=== PATIENT | female | born 1990 | race Caucasian/White ===

== ENCOUNTER → 2018-04-09 | Outpatient (CLI) | payer OTHER ==
[~2018-04-09] MED LIST: ACET-76 PO; ALBU18HF INH; MAGN250T8 PO; METH1TAB41 PO; MONT10TA6 PO; MULT-732 PO; ST.300TA3 PO
[2018-04-09 09:00] LABS: CULTURE INDICATED? NO; MICROSCOPIC NOT IND
[2018-04-09 09:42] LABS: BASOPHILS # (AUTO) 0.05 x10^3/uL (0-0.1); BASOPHILS % (AUTO) 1 % (0-1); EOSINOPHILS # (AUTO) 0.33 x10^3/uL (0-0.4); EOSINOPHILS % (AUTO) 4 % (1-7); LYMPHOCYTES # (AUTO) 1.63 x10^3/uL (1-3.4); LYMPHOCYTES % (AUTO) 17 % (22-44); MD NO; MEAN CORPUSCULAR HEMOGLOBIN 31.2 pg (27.0-34.8); MEAN CORPUSCULAR HGB CONC 34.5 g/dL (32.4-35.8); MEAN CORPUSCULAR VOLUME 90.5 fL (80-100); MEAN PLATELET VOLUME 9.3 fL (7.4-10.4); MONOCYTES # (AUTO) 0.48 x10^3/uL (0.2-0.8); MONOCYTES % (AUTO) 5 % (2-9); NEUTROPHILS # (AUTO) 7.02 x10^3/uL (1.8-6.8); NEUTROPHILS % (AUTO) 74 % (42-75); PLATELET COUNT 272 x10^3/uL (130-400); RED BLOOD COUNT 5.01 x10^6/uL (3.82-5.3); RED CELL DISTRIBUTION WIDTH 13.3 % (9.6-15.2)
[2018-04-09 09:53] LABS: CALCIUM 8.7 mg/dL (8.5-10.1)
[2018-04-09 09:57] LABS: CREATININE 0.62 mg/dL (0.55-1.02)
[2018-04-09 09:58] LABS: ANION GAP 3 mmol/L (5-15); CHLORIDE 109 mmol/L (98-107)
== END | disposition home or self-care (01) ==
LOC: STAR 08:00
PROVIDERS: ATTEND Obstetrics & Gynecology Gynecology
DX: Z01.818 Encounter for other preprocedural examination (principal); R10.2 Pelvic and perineal pain; G89.29 Other chronic pain; N94.5 Secondary dysmenorrhea
CPT/HCPCS: 36415; 80048; 81003; 84703; 85025

== ENCOUNTER 2018-04-13 05:37 | Day surgery (SDC) | payer OTHER ==
[~2018-04-13] VITALS: Ht 170.2 cm; Wt 68.7 kg
[~2018-04-13 05:37] MED LIST changes: -ACET-76 PO
[2018-04-13] MEDS ORDERED: LACTATED RINGERS 1,000 ML IV SCH (06:47)
[2018-04-13] MEDS ORDERED: LIDOCAINE 1%-EPI 1:100K, 30ML ONE (06:59)
[2018-04-13] MEDS ORDERED: LIDOCAINE/PF 1%-EPI 1:200K, 30 ML ONE (06:59)
[2018-04-13] MEDS ORDERED: METHYLENE BLUE 10 MG/ML 10ML ONE (06:59)
[2018-04-13] MEDS ORDERED: FLUORESCEIN SODIUM 500 MG/5 ML ONE (06:59)
[2018-04-13 07:07] VITALS: BP 125/76
[2018-04-13] MEDS ORDERED: FENTANYL PF 250 MCG/5ML ONE (07:11)
[2018-04-13] MEDS ORDERED: MIDAZOLAM 1 MG/ML, 2ML ONE (07:11)
[2018-04-13] MEDS ORDERED: ACET-76 PO (07:14)
[2018-04-13] MEDS ORDERED: KETOROLAC 30 MG/1 ML ONE (07:28)
[2018-04-13] MEDS ORDERED: ONDANSETRON 2MG/ML, 2ML IV PRN (07:30)
[2018-04-13] MEDS ORDERED: MEPERIDINE/PF 25MG/0.5ML IVPush PRN (07:30)
[2018-04-13] MEDS ORDERED: hydrALAzine 20 MG/ML, 1ML IV PRN (07:30)
[2018-04-13] MEDS ORDERED: HYDROmorphone 2 MG/ML, 1ML IVPush PRN (07:30)
[2018-04-13] MEDS ORDERED: OXYcodone 5 MG/5 ML ORAL.SOL UDC PO PRN (07:30)
[2018-04-13] MEDS ORDERED: METHYLENE BLUE 10 MG/ML 10ML INJ ONE (07:30)
[2018-04-13] MEDS ORDERED: ALBUTEROL/IPRATROPIUM 2.5MG/0.5MG, 3 ML NPPB PRN (07:30)
[2018-04-13] MEDS ORDERED: LABETALOL 5MG/ML, 20ML IV PRN (07:30)
[2018-04-13] MEDS ORDERED: PROMETHAZINE 25 MG/ML, 1ML IV PRN (07:30)
[2018-04-13] MEDS ORDERED: LIDOCAINE 1%-EPI 1:100K, 30ML INFIL ONE (07:30)
[2018-04-13] MEDS ORDERED: CEFAZOLIN 1,000 MG ONE (07:36)
[2018-04-13] MEDS ORDERED: DEXAMETHASONE 4 MG/ML, 5ML ONE (07:39)
[2018-04-13] MEDS ORDERED: ONDANSETRON 2MG/ML, 2ML ONE (08:24)
[2018-04-13] MEDS ORDERED: PROPOFOL 10 MG/ML, 20ML ONE (08:24)
[2018-04-13] MEDS ORDERED: ROCURONIUM 10MG/ML,5ML ONE (08:24)
[2018-04-13] MEDS ORDERED: FENTANYL PF 100 MCG/2ML ONE (09:03)
[2018-04-13] MEDS ORDERED: OXYcodone 5 MG/5 ML ORAL.SOL UDC ONE (09:03)
[2018-04-13] MEDS: FENTANYL PF 100 MCG/2ML IV PRN ×3 (09:07→09:26)
[2018-04-13] MEDS ORDERED: HYDROmorphone 1 MG/ML, 1ML ONE (09:37)
== END 2018-04-13 12:35 | disposition home or self-care (01) ==
LOC: OUT 05:37
PROVIDERS: ATTEND Obstetrics & Gynecology Gynecology
DX: N94.6 Dysmenorrhea, unspecified (principal); N83.8 Other noninflammatory disorders of ovary, fallopian tube and broad ligament; N80.2 Endometriosis of fallopian tube; Z88.8 Allergy status to other drugs, medicaments and biological substances
CPT/HCPCS: 58350; 58662; 81025; 88304; 88305; J0690; J1100; J1170; J1885; J2250; J2405; J2704; J3010; J3490; J7120; Q9968

== ENCOUNTER 2019-11-30 09:04 | Emergency (ER) | payer OTHER ==
[~2019-11-30] VITALS: Ht 170.2 cm; Wt 88.2 kg
[~2019-11-30 09:04] MED LIST changes: +ACET-76 PO
[2019-11-30 09:29] LABS: MICROSCOPIC NOT IND
--- NOTE | 2019-11-30 09:57 | NUR ---
LAPROSCOPY FOR ENDOMETRIOSIS IN 2019. FREQUENT UTI'S SINCE PROCEDURE. BRIGHT BLOOD W/ INTERCOURSE. HAS BEEN TO URGENT CARE MULTIPLE TIMES. SAW DR MIRANDA FOR SX. DENIES STD HX. DENIES PARTNER HAS STD HX. "I JUST KNOW SOMETHING'S WRONG". CURRENTLY C/O PAIN ACROSS LOWER BACK. TYLENOL & ADVIL AT 0630. + NAUSEA LAST NOC & THIS AM. DENIES VOMITING, DIARRHEA, CONSTIPATION. LMP: 2 MONTHS AGO. TAKING CONTROL: YESICA. DIRECTOR REGULATORY COMPLIANCE INCREASED [employer] DOSAGE RECENTLY.
[2019-11-30 10:05] LABS: BASOPHILS % (AUTO) 1 % (0-1); EOSINOPHILS % (AUTO) 1 % (1-7); LYMPHOCYTES % (AUTO) 23 % (22-44); MEAN CORPUSCULAR HEMOGLOBIN 30.6 pg (27.0-34.8); MEAN CORPUSCULAR HGB CONC 33.3 g/dL (32.4-35.8); MONOCYTES % (AUTO) 6 % (2-9); NEUTROPHILS % (AUTO) 70 % (42-75); PLATELET COUNT 275 x10^3/uL (130-400); RED BLOOD COUNT 4.62 x10^6/uL (3.82-5.3); RED CELL DISTRIBUTION WIDTH 12.8 % (9.6-15.2)
[2019-11-30 10:07] LABS: MD NO
[2019-11-30] MEDS ORDERED: MAGNESIUM GLYCINATE (10:07)
[2019-11-30] MEDS ORDERED: BREO ELLIPTA INH (10:07)
[2019-11-30 10:16] LABS: ALANINE AMINOTRANSFERASE 20 U/L (12-78); ALBUMIN 3.8 g/dL (3.4-5.0); ANION GAP 8 mmol/L (5-15); CALCIUM 8.8 mg/dL (8.5-10.1); CHLORIDE 108 mmol/L (98-107); CREATININE 0.78 mg/dL (0.55-1.02)
[2019-11-30 10:22] LABS: ALKALINE PHOSPHATASE 46 U/L (45-117); BILIRUBIN,TOTAL 0.6 mg/dL (0.2-1.0); TOTAL PROTEIN 7.1 g/dL (6.4-8.2)
[2019-11-30 11:08] VITALS: BP 105/54
--- NOTE | 2019-11-30 11:09 | NUR ---
REPORTS DECREASED PAIN, AT THIS TIME.
--- NOTE | 2019-11-30 11:18 | NUR ---
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
--- NOTE | 2019-11-30 12:12 | NUR ---
AMBULATORY TO [facility]IDER BR W/OUT INCIDENT; GAIT STEADY.
[2019-11-30 12:26] LABS: CLUE CELLS NONE SEEN (NONE SEEN); WET PREP WBCS FEW (FEW)
== END 2019-11-30 12:40 | disposition home or self-care (01) ==
LOC: ED 10:19
DX: N93.8 Other specified abnormal uterine and vaginal bleeding (principal)
CPT/HCPCS: 36415; 76830; 80053; 81003; 84703; 85025; 87210; 87491; 87591; 87808; 99284